=== PATIENT | female | born 1945 | race Caucasian/White ===

== ENCOUNTER 2017-12-05 16:23 | Emergency (ER) | payer MEDICARE, BC ==
[2017-12-05 17:09] VITALS: BP 137/87
--- NOTE | 2017-12-05 17:33 | UC ---
Throat Pain/Nasal Last HPI - HPI Summary HPI Summary: The patient is a 71-year-old female with a one-month history of sinus pressure and pain postnasal drip and cough. She had fever about 3 or 4 days ago. She has facial pressure and mild occipital headache. She denies any nausea vomiting or diarrhea. Eyes any chest pain or shortness of breath. He feels fatigued. He has long-standing problems with her sinuses. She has had sinus endoscopy performed by an ENT. - History of Current Complaint Chief Complaint: UCGeneralIllness Stated Complaint: SORE THROAT Time Seen by Provider: 12/05/17 17:24 Hx Obtained From: Patient Onset/Duration: Gradual Onset, Lasting Weeks Severity: Moderate Pain Intensity: 4 Pain Scale Used: 0-10 Numeric Cough: Nonproductive Associated Signs & Symptoms: Positive: Sinus Discomfort, Nasal Discharge Related History: Seasonal Allergies - Allergies/Home Medications Allergies/Adverse Reactions: Allergies Allergy/AdvReac Type Severity Reaction Status Date / Time risedronate sodium Allergy GI Upset Verified 12/05/17 17:10 PMH/Surg Hx/FS Hx/Imm Hx Previously Healthy: Yes - Surgical History Surgical History: Yes Surgery Procedure, Year, and Place: Breast Biopsy, 1990; D&C, 1984; Tubal Ligation, 1976; [place], 1968; T&A, 1959 - Family History Known Family History: Positive: Hypertension - Social History Alcohol Use: None Substance Use Type: None Smoking Status (MU): Never Smoked Tobacco - Immunization History Most Recent Influenza Vaccination: 12/05/13 Most Recent Tetanus Shot: 12/09/13 Most Recent Pneumonia Vaccination: 12/09/13 Review of Systems Constitutional: Negative Skin: Negative Eyes: Negative ENT: Nasal Discharge, Sinus Congestion, Sinus Pain/Tenderness Respiratory: Cough Cardiovascular: Negative Gastrointestinal: Negative Genitourinary: Negative Motor: Negative Neurovascular: Negative Musculoskeletal: Negative Neurological: Negative Psychological: Negative Is Patient Immunocompromised?: No All Other Systems Reviewed And Are Negative: Yes Physical Exam Triage Information Reviewed: Yes Appearance: Well-Appearing, No Pain Distress, Well-Nourished Vital Signs: Initial Vital Signs Temp 97.9 F 12/05/17 17:02 Pulse 97 12/05/17 17:02 Resp 16 12/05/17 17:02 BP 137/87 12/05/17 17:02 Pulse Ox 99 12/05/17 17:02 Vital Signs Reviewed: Yes Eyes: Positive: Conjunctiva Clear ENT: Positive: Hearing grossly normal, Sinus tenderness, Uvula midline. Negative: Nasal congestion, Nasal drainage, Tonsillar swelling, Tonsillar exudate, Muffled voice, Hoarse voice Neck: Positive: Supple, Nontender, No Lymphadenopathy Respiratory: Positive: Lungs clear, Normal breath sounds, No respiratory distress, No accessory muscle use Cardiovascular: Positive: RRR, No Murmur Musculoskeletal: Positive: ROM Intact, No Edema Neurological: Positive: Alert Psychological Exam: Normal Skin Exam: Normal Throat Pain/Nasal Course/Dx - Differential Dx/Diagnosis Provider Diagnoses: acute sinusitis Discharge - Sign-Out/Discharge Documenting (check all that apply): Patient Departure All imaging exams completed and their final reports reviewed: No Studies - Discharge Plan Condition: Stable Disposition: HOME Prescriptions: Amoxicillin PO (*) [Amoxicillin 875 MG (*)] 875 mg PO BID #14 tab Fluticasone NASAL SPRAY 50MCG* [Flonase NASAL SPRAY 50MCG*] 2 spray BOTH NARES BID #1 btl Patient Education Materials: Sinusitis (ED) Referrals: Kathryn Tao MD [Primary Care Provider] - 2 Weeks Additional Instructions: saline nasal spray twice daily BP a little high on today's visit - Billing Disposition and Condition Condition: STABLE Disposition: Home
== END 2017-12-05 17:47 | disposition home or self-care (01) ==
LOC: UCCORT 16:23
DX: J01.90 Acute sinusitis, unspecified (principal); Z88.8 Allergy status to other drugs, medicaments and biological substances
CPT/HCPCS: 99212; G0463